=== PATIENT | female | born 1995 | race Two or more races ===

== ENCOUNTER 2024-09-27 07:36 | Outpatient (AMB) | payer OTHER, SELFPAY ==
--- NOTE | 2024-09-27 07:38 | A.OFFPC_ITS ---
Vital Signs 09/27/24 07:39 Height 5 ft 4 in Weight 199 lb BMI 34.2 BP 110/78 Blood Pressure Location Lt brachial Position Sitting Intake Visit Reasons: re-establish care with DR Flynn Put In Beat Adjuster Required: No Accompanied by: Self / Same As Patient Allergies No Known Allergies [No Known Allergies*] Allergy (Verified 09/27/24 07:48) Medication List - Last Reconciled 09/27/24 by Selina Wilson MD No Known Home Meds Tobacco use date assessed: 09/27/24 Dental Screening Dental Screen Date: 09/27/24 Did you have a dental visit in the last 12 months?: Yes Did you have a dental problem in the last 6 months where you did not have access to dental care?: No Was dental information given to patient?: Patient has dentist HPI HPI Comments History of Present Illness Details The patient is a 29-year-old female presenting for a physical exam and evaluation of fatigue. She reports feeling tired without a clear cause, noting that her partner does not experience similar fatigue despite similar circumstances. In 2018, she had a history of low hemoglobin, which may contribute to her current symptoms. The patient describes her menstrual periods as irregular, which may be contributing to her fatigue. She has not experienced any significant weight changes since 2020, despite having a baby a year and a half ago. Her preventative care includes a Pap smear conducted in June 2020, which was normal, and a Tdap vaccination in 2022. She has a history of a and her mother has rheumatoid arthritis. She does not smoke, has never smoked, and consumes alcohol only on special occasions. - Pap smear conducted in June 2024, nor mal results - Tdap vaccination administered in 2022 [facility]LY [facility], [facility] Medical History (Updated 09/27/24 @ 08:03 by Selina Wilson MD) Headache Obesity (BMI 30.0-34.9) Lower back pain Surgical History History of Family History Maternal Grandmother Stroke Rheumatoid arthritis Mother Rheumatoid arthritis Social History Housing: House Alcohol intake: current Alcohol intake frequency: holidays/special occasions only Alcohol type: hard liquor and other Patient Tobacco Use Status: Never used Tobacco e-Cigarette/Vaping Use: Never Used Second Hand Smoke Exposure: No service: No Current occupational status: employed Cognitive needs: No Hearing needs: No Vision needs: No Questionnaire PHQ-9 Over the last 2 weeks, how often have you been bothered by any of the following problems? 1. Little interest or pleasure in doing things: not at all 2. Feeling down, depressed, or hopeless: not at all 3. Trouble falling or staying asleep, or sleeping too much: not at all 4. Feeling tired or having little energy: more than half the days 5. Poor appetite or overeating: not at all 6. Feeling bad about yourself - or that you are a failure or have let yourself or your family down: not at all 7. Trouble concentrating on things, such as reading the newspaper or watching television: not at all 8. Moving or speaking so slowly that other people could have noticed. Or the opposite - being so fidgety or restless that you have been moving around a lot more than usual: not at all 9. Thoughts that you would be better off or of hurting yourself in some way: not at all Total score: 2 Depression Screening Interpretation: Negative Depression Screening Done: Yes 37972 - PHQ-9 Billing: Yes Source: Developed by Drs. Sherwin Reynolds, eHlen Kelly, Daniel Chun and colleagues, with an educational destiny from [employer]. Thrive Questionnaire Date Thrive assessed: 09/27/24 I am a: Patient What is your living situation today?: I have a steady place to live Within the past 12 months, did the food you bought not last and you didn't have the money to get more?: Never true Within the past 12 months, did you worry whether your food would run out before you got money to buy more?: Never true Do you have trouble paying for medicines?: No Do you have trouble getting transportation to medical appointments?: No Do you have trouble paying your heating and electricity bill?: No Do you have trouble taking care of your child, family member or friend?: No Do you have trouble with day-to-day activities such as bathing, preparing meals, shopping, managing finances, etc.?: No Are you currently unemployed and looking for a job?: No Are you interested in more education?: No Please select the resources that you would like help with: None Currently or been in a relationship where the following occur: No concerns reported THRIVE Score: 0 AUDIT C Alcohol Use Questionnaire (AUDIT-C) 1. How often do you have a drink containing alcohol?: Monthly or less 2. How many drinks containing alcohol do you have on a typical day when you are drinking?: 1 or 2 3. How often do you have six or more drinks on one occasion?: Never Total Score: 1 Score Reviewed/Action Taken: No JONE-7 AMB Questionnaire JONE-7 Date JONE - 7 assessed: 09/27/24 Feeling nervous, anxious, or on edge: 0 = Not at all Not being able to stop or control worryin = Not at all Worrying too much about different things: 0 = Not at all Trouble relaxin = Not at all Being so restless that it is hard to sit still: 0 = Not at all Becoming easily annoyed or irritable: 0 = Not at all Feeling afraid as if something awful might happen: 0 = Not at all Total JONE-7 score (0-4 normal; 5-9 mild; 10-14 moderate; 15-21 severe): 0 Source: Developed by Drs. Sherwin Reynolds, Helen Kelly, Daniel Chun and colleagues, with an educational destiny from [employer]. JONE-7 Assessment Billing JONE-7 Assessment Tool: JONE-7 Assessment 85130 Review of Systems Const All systems reviewed & are unremarkable except as noted in HPI and below Card Denies chest pain at rest, Denies chest pain with activity, Denies edema, Denies irregular heart rhythm, Denies claudication, Denies dyspnea, Denies dyspnea on exertion, Denies orthopnea, Denies paroxysmal nocturnal dyspnea and Denies slow heart rate Resp Denies cough, Denies dyspnea and Denies dyspnea on exertion GI Denies abdominal pain, Denies change in bowel habits, Denies excessive flatus, Denies nausea and Denies vomiting Denies urinary incontinence, Denies urinary hesitancy and Denies urinary urgency Musc Denies abnormal gait, Denies atrophy, Denies deformity and Denies limited range of motion Skin/Breast Denies bleeding lesions, Denies changing lesions and Denies rash Neuro Denies abnormal gait, Denies behavioral changes and Denies lack of coordination Psych Denies behavioral changes Physical exam (Primary Care) Vital Signs: Last Vital Signs BP 110/78 09/27/24 07:39 BMI result Body Mass Index 34.2 BMI Assessment/Plan discussion: High BMI High, discussed plan: lifestyle, weight reduction, dietary and physical activity Tobacco/Smoking Status: Tobacco use Status Tobacco use date assessed 09/27/24 09/27/24 07:45 Patient Tobacco Use Status Never used Tobacco 09/27/24 07:45 e-Cigarette/Vaping Use Never Used 09/27/24 07:45 PHQ-9: PHQ-9 Score PHQ-9: Total score 2 09/27/24 07:45 Depression Screening Interpretation: Negative Thrive Assessment: Date of Thrive Assessment Date Thrive assessed 09/27/24 09/27/24 07:45 Currently or been in a relationship where the following occur: No concerns reported HENMT Head: Yes normal to inspection, Yes normocephalic and Yes atraumatic Ears: external ears normal Eyes General: appearance normal, both eyes and all related structures Eyelids: Yes eyelids normal Conjunctivae: conjunctivae normal Neck Neck: Yes normal visual inspection and Yes supple Resp Effort & Inspection: normal respiratory effort Auscultation: clear to auscultation bilaterally Cardio Jugular venous distension: no JVD Rate: regular rate Rhythm: regular rhythm Heart sounds: S1 normal heart sound present and S2 normal heart sound present GI Inspection: Yes normal to inspection Palpation (GI): Soft to palpation and nontender Auscultation: normal bowel sounds Skin General skin exam: no rashes or lesions noted Neuro General: no focal motor deficits Extrem General: Yes full ROM Psych Appearance: grossly normal Coding Level of Care Code Est Pt Level 3 (99479) Est Pt Prev Care 18-39y(61151) Diagnoses Physical exam Z00.00 Fatigue R53.83 Additional Codes PHQ-9 - 22113 - PHQ-9 Billing: Yes ([id number]) JONE-7 Assessment Billing - JONE-7 Assessment Tool: JONE-7 Assessment 51834 ([id number]) Time Spent (min) 32 Assessment & Plan Assessment & Plan (1) Physical exam: Code(s): Z00.00 - Encounter for general adult medical examination without abnormal findings Category: Medical (2) Fatigue: Code(s): R53.83 - Other fatigue Category: Medical Plan The plan includes conducting blood work to evaluate potential causes of fatigue, including checking hemoglobin, vitamin D, vitamin , thyroid function, and comprehensive metabolic panel to assess kidney and liver function. The patient is advised to fast for 8 hours prior to the blood draw, which can be done at her convenience within the next three months. Additionally, lifestyle factors such as living with children are acknowledged as potential contributors to fatigue, and reassurance is provided that these factors can sometimes lead to tiredness even when all medical tests are normal. Patient was informed and verbally consented to the use of an ambient scribe for clinic note documentation during this visit. I discussed with the patient the plan to conduct blood work to investigate the cause of her fatigue, including tests for hemoglobin, vitamin D, vitamin B12, thyroid function, and a comprehensive metabolic panel. I advised her to fast for 8 hours before the blood draw, which she can schedule at her convenience within the next three months. We also talked about how lifestyle factors, such as living with children, can contribute to fatigue, and I reassured her that sometimes tiredness can occur even when medical tests are normal. Patient Instructions: - Schedule and complete blood work within the next three months, fasting for 8 hours prior. - Understand that lifestyle factors, such as living with children, may contribute to fatigue.
[2024-09-27 07:39] VITALS: BP 110/78; BMI 34.2
--- OUTSIDE RECORDS SUMMARY | 2024-09-27 07:39 | XMS_ITS | Clinical Summary ---
Author Organization [facility] Address [address] [place] [address] Phone Care Team Providers Care Pluck Separator Name Role Phone Unavailable Primary Care Provider Unavailabl e Immunizations Immunization Administration Dates Next Due DTP 12/23/1995, 5,1994, 995 DTaP 5 08/12/1999 H1N1 04/09/2009 HPV, Quadrivalent 08/15/2009,04/09/2009,01/31/20 08 Hep B, ped/adol 01/12/1995,1994,1994 Hib (PRP-T) 12/23/1995, 5,1994, 995 IPV 08/12/1999 Influenza, injectable, trivalent 01/16/2009,03/19 Influenza, intranasal, trivalent 04/22/2010 MMR 07/22/1998,12/23/1995 Meningococcal Conj (Menactra) MCV4P 01/27/2007 OPV 01/12/1995,1994,1994 Tdap 01/15/2006 Varicella 01/31/2008,07/22/1998 Family History Relation Name Status Comments Father Alive Father: Alive a nd well Half-Brother Alive Half brother (M ): Asthma Mother Alive Mother: Thyroid disease Other Family history of Obesity, Family history of Asthma, Family history of Migraines, Family history of Sudden /[place] under age 55 Sister Alive Sister: Alive a nd well Social History Tobacco Use Types Packs/Day Years Used Date Smoking Tobacco: Never Assessed Comments Unknown Sex and Gender Information Value Date Recorded Sex Assigned at Not on file Legal Sex Female 4:47 PM EDT Gender Identity Not on file Sexual Orientation Not on file Last Filed Vital Signs Vital Sign Reading Time Taken Comments Blood Pressure 100/60 09/21/2012 12:00 AM EDT Pulse 82 05/25/2012 12:00 AM EST Temperature 37.2 ??C (98.9 ??F) 11/11/2012 12:00 AM E DT Respiratory Rate - - Oxygen Saturation - - Inhaled Oxygen Concentration - - Weight 65.8 kg (145 lb) 11/11/2012 12:00 AM EDT Height 160.8 cm (5' 3.3 ) 09/21/2012 12:00 AM ED T Body Mass Index 25.44 09/21/2012 12:00 AM EDT Plan of Treatment Health Maintenance Due Date Last Done Comments DTaP,Tdap,and Td Vaccines (7 - Td or Tdap) 01/16/2016 01/15/2006, 08/12/1999, 12/23/1995, Additional history exists Influenza Vaccines (#1) 2023 04/22/19 11, 01/16/2009, 04/04/2008 COVID-19 Vaccine ( season) 2023 Hepatitis B Vaccines Completed 01/12/1995, 1994, 1994 HIB Vaccines Completed 12/23/1995, 12/19, 1994, Additional history exists MMR Vaccines Completed 07/22/1998, 12/23/1995 IPV Vaccines Completed 08/12/1999, 12/19, 1994, Additional history exists Meningococcal Vaccine Aged Out 01/27/2007 No maggie arlette eligible based on patient's age to complete this topic Varicella Vaccines Completed 01/31/2008, 07/22/1998 HPV Vaccines Completed 08/15/2009, 03/20, 01/31/2008 Hepatitis A Vaccines Aged Out No long er eligible based on patient's age to complete this topic Men B Vaccine Aged Out No longer elig ible based on patient's age to complete this topic Pneumococcal Vaccine Aged Out No long er eligible based on patient's age to complete this topic Procedures * Due to [place] state law, this organization might not be sharing sensitive test results. Procedure Name Priority Date/Time Associated Diagnosis Comments CHLAMYDIA AND GONORRHEA, AMPLIFIED Routine 05/26/2012 2:35 PM EST from Last 3 Months or Most Recently Relevant to Health Maintenance Results * Due to [place] state law, this organization might not be sharing sensitive test results. * Chlamydia and Gonorrhoea, Amplified (05/26/2012 2:35 PM EST) URINE CHLAMYDIA AMP PROBE NEGATIVE [facility] Comment: NO CHLAMYDIA TRACHOMATIS RNA DETECTED IN THIS PATIENT'S SAMPLE. ? (REFERENCE RANGE/NORMAL VALUE: NOT DETECTED) URINE GC AMP PROBE NEGATIVE [facility] Comment: NO NEISSERIA GONORRHOEAE RNA DETECTED IN THIS PATIENT'S SAMPLE. ? (REFERENCE RANGE/NORMAL VALUE: NOT DETECTED) ? NOTE: THIS TEST USES GUN PERFORATOR LOADER MEDIATED AMPLIFICATION METHOD TO DETECT rRNA FROM C.TRACHOMATIS AND N.GONORRHOEAE. A NEGATIVE RESULT DOES NOT PRECLUDE INFECTION WITH C.TRACHOMATIS OR N.GONORRHOEAE BECAUSE RESULTS ARE DEPENDENT ON ADEQUATE SPECIMEN COLLECTION, ABSENCE OF INHIBITORS, AND SUFFICIENT rRNA TO BE DETECTED. THE APTIMA COMBO2 ASSAY IS NOT INTENDED FOR THE EVALUATION OF SUSPECTED SEXUAL ABUSE OR FOR OTHER MEDICO LEGAL INDICATIONS. IS TRUE FOR ALL NON CULTURE METHODS, A POSITIVE SPECIMEN OBTAINED FROM A PATIENT AFTER THERAPEUTIC TREATMENT CANNOT BE INTERPRETED INDICATING THE PRESENCE OF VIABLE C.TRACHOMATIS OR N.GONORRHOEAE. THERAPEUTIC FAILURE OR SUCCESS CANNOT BE DETERMINED WITH THE APTIMA COMBO2 ASSAY SINCE NUCLEIC ACID MAY PERSIST FOLLOWING APPROPRIATE ANTIMICROBIAL THERAPY. A NEGATIVE URINE RESULT FOR A PATIENT WHO IS CLINICALLY SUSPECTED OF HAVING A CHLAMYDIAL OR GONOCOCCAL INFECTION DOES NOT RULE OUT THE PRESENCE OF C.TRACHOMATIS OR N.GONORRHOEAE IN THE UROGENITAL TRACT. TESTING OF AN ENDOCERVICAL(FEMALE) OR URETHRAL(MALE) SPECIMEN IS RECOMMENDED IF THERE IS HIGH CLINICAL SUSPICION OF INFECTION. PRESERVCYT LIQUID PAP AND URINE SAMPLING ARE NOT DESIGNED TO REPLACE CERVICAL EXAMS AND ENDOCERVICAL SAMPLES FOR DIAGNOSIS OF FEMALE UROGENITAL INFECTIONS. PATIENTS MAY HAVE CERVICITIS, URETHRITIS, URINARY TRACT INFECTIONS, OR VAGINAL INFECTIONS DUE TO OTHER CAUSES OR CONCURRENT INFECTIONS WITH OTHER AGENTS. 05/26/2012 2:35 PM EST Narrative [facility] - 05/26/2012 2:35 PM EST URINE CHLAMYDIA GC AMP PROBE us Cheryl Branch MD LAB MICROBIOLOGY - GENERAL ORDER INNA Final Result [facility] [address] [place] [address], [place] from Last 3 Months or Most Recently Relevant to Health Maintenance
== END 2024-09-27 07:57 | disposition home or self-care (01) ==
LOC: HO.HMCH 07:37
PROVIDERS: PCP Internal Medicine; Visit Provider Internal Medicine
DX: Z00.00 Encounter for general adult medical examination without abnormal findings (principal); R53.83 Other fatigue

== ENCOUNTER → 2024-09-27 07:36 | Outpatient (BNVA) | payer OTHER, SELFPAY | PROVIDERS: PCP Internal Medicine; Visit Provider Internal Medicine | DX: Z00.00 Encounter for general adult medical examination without abnormal findings (principal); R53.83 Other fatigue; N92.6 Irregular menstruation, unspecified | CPT/HCPCS: 96127 ==

== ENCOUNTER 2024-12-13 08:55 | Outpatient (REF) | payer OTHER, SELFPAY ==
--- OUTSIDE RECORDS SUMMARY | 2024-12-13 09:23 | XMS_ITS | Continuity of Care Document ---
Author Organization [facility] [address] [place] [address] Phone [phone] Problems Active Problems Provider Date Disorder of thyroid gland Lazaro Tellez Onset: 08/10/2022 Social History Type Date Description Comments Sex Female Sex Unknown Allergies and adverse reactions Description No Known Drug Allergies Procedures Date Code Description Status 08/10/2022 NSHOWOFF No Show Office Visit Complet ed Medical Devices Description No Information Available Encounters Description No Information Available Assessments Description No Information Available Plan of Treatment No Information Available Functional Status Description No Information Available Mental Status Description No Information Available Referrals Description No Information Available
--- OUTSIDE RECORDS SUMMARY | 2024-12-13 09:23 | XMS_ITS | Clinical Summary ---
Author Organization [facility] Address [address] [place] [address] Phone Care Team Providers Care Grapple Operator Name Role Phone Unavailable Primary Care Provider [...] history of Migraines, Family history of Sudden /[place] under age 55 Sister Alive Sister: Alive [...] 82 05/25/2012 12:00 AM EST Temperature 37.2 C (98.9 F) 11/11/2012 12:00 AM EDT Respiratory Rate - - Oxygen Saturation - [...] 01/16/2016 01/15/2006, 08/12/1999, 12/23/1995, Additional history exists COVID-19 Vaccine () 12/19/2023 Influenza Vaccines (#1) 2024 04/22/19 11, 01/16/2009, 04/04/2008 Hepatitis B Vaccines Completed 01/12/1995, 1994, 1994 [...] complete this topic Procedures * Due to [place] state law, this organization might not be sharing sensitive test results. Procedure Name Priority Date/Time Associated Diagnosis Comments CHLAMYDIA AND GONORRHEA, AMPLIFIED Routine 05/26/2012 2:35 PM EST from Last 3 Months or Most Recently Relevant to Health Maintenance Results * Due to [place] state law, this organization might not be sharing sensitive test results. * Chlamydia and Gonorrhoea, Amplified (05/26/2012 2:35 PM EST) Pathologist [facility] URINE CHLAMYDIA AMP PROBE NEGATIVE [facility] Comment: NO CHLAMYDIA TRACHOMATIS RNA DETECTED IN THIS PATIENT'S SAMPLE. (REFERENCE RANGE/NORMAL VALUE: NOT DETECTED) URINE GC AMP PROBE NEGATIVE [facility] Comment: NO NEISSERIA GONORRHOEAE RNA DETECTED IN THIS PATIENT'S SAMPLE. (REFERENCE RANGE/NORMAL VALUE: NOT DETECTED) NOTE: THIS TEST USES HOP STRAINER MEDIATED AMPLIFICATION METHOD TO DETECT rRNA FROM [...] 05/26/2012 2:35 PM EST Narrative [facility] - 05/26/2012 2:35 PM EST URINE CHLAMYDIA GC AMP PROBE us Cheryl Branch MD LAB MICROBIOLOGY - GENERAL ORDER INNA Final Result [facility] [address] [place] [address], [place] from Last 3 Months or Most Recently Relevant to Health Maintenance
--- OUTSIDE RECORDS SUMMARY | 2024-12-13 09:23 | XMS_ITS | Encounter Summary ---
Author Organization [facility] Address [address] [place] [address] Phone Care Team Providers Care International Recruiter Name Role Phone Shayy Hermosillo MD Primary Care Provider [phone] Encounter Details Date Type Department Care Team (Late st Contact Info) Description 02/10/2012 Documentation [facility] [place] [place] Family Medicine [address] [place] [address] Family Medicine, Physician [address] [id number] Social History Tobacco Use Types Packs/Day Years Used Date Smoking Tobacco: Never Assessed Comments Unknown Sex and Gender Information Value Date Recorded Sex Assigned at Not on file Legal Sex Female 4:47 PM EDT Gender Identity Not on file Sexual Orientation Not on file documented as of this encounter Plan of Treatment Not on file documented as of this encounter Visit Diagnoses Not on filedocumented in this encounter Care Teams International Recruiter Relationship Specialty Start Date End Date Shayy Hermosillo MD [address] [place] [address] [place] [address] PCP - General 11/27/16 07/29/22 documented as of this encounter
--- OUTSIDE RECORDS SUMMARY | 2024-12-13 09:23 | XMS_ITS | Encounter Summary ---
Author Organization [facility] Address [address] [place] [address] Phone Care Team Providers Care Director Patient Financial Services Name Role Phone Shayy Hermosillo MD Primary Care Provider [phone] Encounter Details Date Type Department Care Team (Late st Contact Info) Description 12/03/2016 Conversion Encounter [facility] [place] [address] [place] [address] Social History Tobacco Use Types Packs/Day Years [...] on filedocumented in this encounter Care Teams Director Patient Financial Services Relationship Specialty Start Date End Date Shayy Hermosillo MD [address] [place] [address] PCP - General 11/27/16 07/29/22 documented as of this encounter
--- OUTSIDE RECORDS SUMMARY | 2024-12-13 09:23 | XMS_ITS | Encounter Summary ---
Author Organization [facility] Address [address] [place] [address] Phone Care Team Providers Care Mill Turner Name Role Phone Shayy Hermosillo MD Primary Care Provider [phone] Encounter Details Date Type Department Care Team (Late st Contact Info) Description 12/24/2010 Documentation [facility] [place] [address] [place] [address] Family Medicine, Physician [address] [phone] Social History Tobacco Use Types Packs/Day Years [...] on filedocumented in this encounter Care Teams Mill Turner Relationship Specialty Start Date End Date Shayy Hermosillo MD [address] [place] [address] [place] [address] PCP - General 11/27/16 07/29/22 documented as of this encounter
--- OUTSIDE RECORDS SUMMARY | 2024-12-13 09:23 | XMS_ITS | Encounter Summary ---
Author Organization [facility] Address [address] [place] [address] Phone Care Team Providers Care Equipment Maintenance Superintendent Name Role Phone Shayy Hermosillo MD Primary Care Provider [phone] Encounter Details Date Type Department Care Team (Late st Contact Info) Description 12/24/2010 Documentation [facility] [place] [address] [place] [address] Family Medicine, Physician [address] [phone] Social History Tobacco Use Types Packs/Day Years [...] on filedocumented in this encounter Care Teams Equipment Maintenance Superintendent Relationship Specialty Start Date End Date Shayy Hermosillo MD [address] [place] [address] [place] [address] PCP - General 11/27/16 07/29/22 documented as of this encounter
[2024-12-13 09:31] LABS: MANUAL DIFF FLAG NO
[2024-12-13 10:51] LABS: Hematocrit 36.3 % (37.0-47.0); Hemoglobin 11.5 g/dl (12.0-16.0); Imm Gran Abs Auto 0.04 X10*3/uL (0.00-0.03); Imm Gran Pct Auto 0.6 % (0.0-0.4); Lymphocytes Absolute Auto 2.0 X10*3/uL (1.2-4.9); Mean Corpuscular HGB Conc 31.7 g/dl (31.0-35.0); Mean Corpuscular Hemoglobin 25.9 pg (27.0-33.0); Mean Corpuscular Volume 81.8 fL (80.0-98.0); NRBC Abs Auto 0.000 X10*3/uL (0.0-0.012); NRBC Pct Auto 0.0 /100WBC (0.0-0.2); Platelet Count 230 X10*3/uL (160-400); Red Blood Count 4.44 X10*6/uL (4.20-5.50); White Blood Count 6.8 X10*3/uL (4.8-10.8)
[2024-12-13 11:18] LABS: Alanine Aminotransferase 23 U/L (0-31); Albumin Level 4.5 g/dL (3.5-5.0); Alkaline Phosphatase 58 U/L (39-117); Anion Gap 11 (12-20); Aspartate Amino Transferase 19 U/L (5-31); Blood Urea Nitrogen 8 mg/dL (9-16); Calcium 9.2 mg/dL (8.4-10.2); Carbon Dioxide 25 mmol/L (22-29); Chloride 106 mmol/L (96-108); Cholesterol 159 mg/dL (<200); Estimated Glomerular Filt Rate > 60; HDL Cholesterol 46 mg/dL (>40); Iron 49 mcg/dL (30-160); Percent Iron Saturation 13 % (15-50); Potassium 4.2 mmol/L (3.3-5.1); Sodium 138 mmol/L (135-145); Total Iron Binding Capacity 382 mcg/dL (228-428); Total Protein 7.4 g/dL (6.5-8.0); Triglycerides 82 mg/dL (<150); Unsaturated Iron Binding 333 ug/dL
[2024-12-13 11:36] LABS: Thyroid Stimulating Hormone 1.48 uIU/mL (0.32-4.0)
[2024-12-13 11:48] LABS: Folate 9.1 ng/mL (> or = 4.0); Vitamin B12 256 pg/mL (200-900)
== END 2024-12-13 08:56 | disposition home or self-care (01) ==
LOC: HO.LAB 08:55
PROVIDERS: PCP Internal Medicine; Visit Provider Internal Medicine
DX: Z00.00 Encounter for general adult medical examination without abnormal findings (principal); E53.8 Deficiency of other specified B group vitamins; R53.83 Other fatigue; E55.9 Vitamin D deficiency, unspecified; D64.9 Anemia, unspecified; Z13.6 Encounter for screening for cardiovascular disorders
CPT/HCPCS: 36415; 80053; 80061; 82306; 82607; 82746; 83540; 84443; 85025